=== PATIENT | female | born 1965 | race Caucasian/White ===

== ENCOUNTER 2016-12-06 22:05 | Emergency (ER) | payer MEDICAID ==
[~2016-12-06] VITALS: Ht 177.8 cm; Wt 85.9 kg
[2016-12-06] MEDS ORDERED: SODIUM CHLORIDE FLUSH 10ML SYR IVF ONE (22:30)
[2016-12-06] MEDS ORDERED: KETOROLAC 30 MG/1 ML IVPush ONE (22:30)
[2016-12-06] MEDS ORDERED: SODIUM CHLORIDE 0.9% 1,000ML IVBOLUS ONE (22:30)
[2016-12-06] MEDS ORDERED: PROCHLORPERAZINE 5 MG/ML, 2ML IVPush ONE (22:30)
[2016-12-06] MEDS ORDERED: PROCHLORPERAZINE 5 MG/ML, 2ML ONE (22:34)
[2016-12-06] MEDS ORDERED: KETOROLAC 30 MG/1 ML ONE (22:34)
[2016-12-06] MEDS ORDERED: ESTR1PAT25 TD (22:53)
[2016-12-06] MEDS ORDERED: TEST1.25 TD (22:53)
[2016-12-06 22:56] LABS: BLOOD UREA NITROGEN 18 mg/dL (7-18)
[2016-12-06] MEDS ORDERED: BUPIVACAINE/PF 0.5% ONE (23:39)
[2016-12-07] MEDS ORDERED: TRIAMCINOLONE ACETONIDE 40 MG/ML, 1ML IM ONE
[2016-12-07] MEDS ORDERED: BUPIVACAINE/PF 0.5% INFIL ONE
[2016-12-07 00:57] VITALS: BP 101/58
== END 2016-12-07 00:59 | disposition home or self-care (01) ==
LOC: ED 23:59
DX: G44.219 Episodic tension-type headache, not intractable (principal); M54.2 Cervicalgia
CPT/HCPCS: 36415; 70450; 80048; 82040; 85025; 85651; 96361; 96374; 96375; 99285; J0780; J1885; J7030

== ENCOUNTER 2018-12-19 21:52 | Emergency (ER) | payer MEDICAID ==
[~2018-12-19] VITALS: Ht 177.8 cm; Wt 89.3 kg
[~2018-12-19 21:52] MED LIST: ESTR1PAT25 TD; TEST1.25 TD
--- NOTE | 2018-12-19 22:10 | NUR ---
PT ARRIVED TO ROOM 18 AMBULATORY WITH SPOUSE. PT DRESSED IN GOWN AND ATTACHED TO MONITOR, VSS. PT AAO X 4, ROOM AIR, NAD, C/O CHEST PRESSURE, CENTRALIZED WITH NO RADIATION. STARTED WHEN SHE WAS OUT TO EAT, NO RELIEF WITH ROLAIDS. MD AT BEDSIDE. PT RESTING IN GURNEY, CALL LIGHT WITHIN REACH, AT BEDSIDE, SIDERAILS X [address], FALL PRECAUTIONS IN PLACE.
--- NOTE | 2018-12-19 22:28 | NUR ---
XRAY AT BEDSIDE.
[2018-12-19 22:40] LABS: BASOPHILS # (AUTO) 0.06 x10^3/uL (0-0.1); BASOPHILS % (AUTO) 1 % (0-1); EOSINOPHILS # (AUTO) 0.25 x10^3/uL (0-0.4); EOSINOPHILS % (AUTO) 3 % (1-7); LYMPHOCYTES # (AUTO) 3.06 x10^3/uL (1-3.4); LYMPHOCYTES % (AUTO) 37 % (22-44); MD NO; MEAN CORPUSCULAR HEMOGLOBIN 29.9 pg (27.0-34.8); MEAN CORPUSCULAR HGB CONC 32.9 g/dL (32.4-35.8); MEAN CORPUSCULAR VOLUME 90.8 fL (80-100); MEAN PLATELET VOLUME 8.1 fL (7.4-10.4); MONOCYTES # (AUTO) 0.56 x10^3/uL (0.2-0.8); MONOCYTES % (AUTO) 7 % (2-9); NEUTROPHILS # (AUTO) 4.41 x10^3/uL (1.8-6.8); NEUTROPHILS % (AUTO) 53 % (42-75); PLATELET COUNT 308 x10^3/uL (130-400); RED BLOOD COUNT 4.25 x10^6/uL (3.82-5.3); RED CELL DISTRIBUTION WIDTH 13.2 % (9.6-15.2)
[2018-12-19 22:52] LABS: ALBUMIN 3.9 g/dL (3.4-5.0); ANION GAP 7 mmol/L (5-15); CALCIUM 8.9 mg/dL (8.5-10.1); CHLORIDE 110 mmol/L (98-107); CREATININE 0.91 mg/dL (0.55-1.02)
[2018-12-19 22:55] LABS: TROPONIN I < 0.015 ng/mL (0.000-0.045)
--- NOTE | 2018-12-19 23:05 | NUR ---
REPORT GIVEN TO TORRES PEREIRA. CARE TRANSFERRED AT THIS TIME.
[2018-12-20 01:01] VITALS: BP 122/76
== END 2018-12-20 01:12 | disposition home or self-care (01) ==
LOC: ED 12-20 01:01
DX: R07.2 Precordial pain (principal)
CPT/HCPCS: 36415; 71045; 80048; 82040; 84484; 85025; 93005; 99284